=== PATIENT | female | born 1985 | race Caucasian/White ===

== ENCOUNTER 2018-12-14 01:13 | Outpatient (CLI) | payer OTHER ==
[~2018-12-14 01:13] MED LIST: PRENATAL CAPLE1 EACH PO
== END 2018-12-14 13:13 | disposition home or self-care (01) ==
LOC: OBS/DEL 01:13
DX: O26.893 Other specified pregnancy related conditions, third trimester (principal); K29.60 Other gastritis without bleeding; Z34.83 Encounter for supervision of other normal pregnancy, third trimester

== ENCOUNTER 2019-01-15 10:34 | Inpatient (IN) | payer OTHER ==
[~2019-01-15] VITALS: Ht 160 cm; Wt 83.9 kg
== END 2019-01-25 10:49 | disposition home or self-care (01) | DRG 807 ==
LOC: LDR 01-23 09:25 → EDBD 01-23 09:25 → LDR 01-23 09:26 → OB/GYN 01-23 12:02
PROVIDERS: ADMIT Obstetrics & Gynecology
PROC: 10E0XZZ Delivery of Products of Conception, External Approach (ICD-10-PCS; principal; 2019-01-23)
PROC: 0KQM0ZZ Repair Perineum Muscle, Open Approach (ICD-10-PCS; 2019-01-23)
PROC: 4A1HXCZ Monitoring of Products of Conception, Cardiac Rate, External Approach (ICD-10-PCS; 2019-01-23)
DX: O70.1 Second degree perineal laceration during delivery (principal); Z37.0 Single live birth; Z3A.39 39 weeks gestation of pregnancy